=== PATIENT | male | born 1975 | race Caucasian/White ===

== ENCOUNTER 2016-12-24 19:17 | Emergency (ER) | payer SELFPAY ==
[~2016-12-24] VITALS: Ht 170.2 cm; Wt 102.6 kg
[2016-12-24 19:19] VITALS: BP 172/95
[2016-12-24] MEDS ORDERED: LIDOCAINE 1%, 10ML INFIL ONE (19:30)
[2016-12-24] MEDS ORDERED: DIPH,PERTUSS(ACELL),TET VAC/PF 0.5 ML IM-VACC ONE ×3 (19:30→20:00)
[2016-12-24] MEDS ORDERED: LIDOCAINE 1%, 20ML ONE (19:36)
[2016-12-24] MEDS ORDERED: LIDOCAINE 1%, 20ML SQ ONE (20:00)
== END 2016-12-24 20:14 | disposition home or self-care (01) ==
LOC: ED 20:07
DX: S01.01XA Laceration without foreign body of scalp, initial encounter (principal); S40.811A Abrasion of right upper arm, initial encounter; Z23 Encounter for immunization; W11.XXXA Fall on and from ladder, initial encounter; Y93.89 Activity, other specified; Y99.8 Other external cause status; Y92.89 Other specified places as the place of occurrence of the external cause
CPT/HCPCS: 12001; 90471; 90715; 99283; J3490

== ENCOUNTER 2018-11-04 20:19 | Emergency (ER) | payer SELFPAY ==
[~2018-11-04] VITALS: Ht 170.2 cm; Wt 101.3 kg
--- NOTE | 2018-11-04 20:27 | NUR ---
NA WHEN CALLED FOR TRIAGE
--- NOTE | 2018-11-04 20:31 | NUR ---
NA WHEN CALLED FOR TRIAGE
[2018-11-04 20:32] VITALS: BP 171/98
[2018-11-04] MEDS ORDERED: LIDOCAINE-MPF 1%, 5ML ONE ×2 (21:13→22:56)
--- NOTE | 2018-11-04 21:43 | NUR ---
RECEIVED REPORT FROM BRANDI PORRAS, ASSUMING CARE OF PT
--- NOTE | 2018-11-04 22:07 | NUR ---
ALL SUPPLIES FOR SUTURING AT BEDSIDE. PA AWARE.
--- NOTE | 2018-11-04 22:52 | NUR ---
PA AT BEDSIDE FOR SUTURING AT THIS TIME.
[2018-11-04] MEDS ORDERED: LIDOCAINE 1%, 2ML INFIL ONE (23:00)
--- NOTE | 2018-11-04 23:09 | NUR ---
REPORT GIVEN TO BILL PORRAS
--- NOTE | 2018-11-04 23:30 | NUR ---
TASK RN: PT AWAKE/ALERT, RESTING IN GURNEY. DC EDUCATION PROVIDED TO PT AND FAMILY, WHO DEMONSTRATE UNDERSTANDING. PT AMBULATED STEADILY TO DC WITH RN
== END 2018-11-04 23:32 | disposition home or self-care (01) ==
LOC: ED 23:10
DX: S01.511A Laceration without foreign body of lip, initial encounter (principal); W45.8XXA Other foreign body or object entering through skin, initial encounter; Y93.89 Activity, other specified; Y92.89 Other specified places as the place of occurrence of the external cause; Y99.8 Other external cause status
CPT/HCPCS: 12052; 13151; 40650; 99285